=== PATIENT | male | born 1960 | race Caucasian/White ===

== ENCOUNTER 2018-05-20 11:30 | Emergency (ER) | payer MEDICAID, OTHER | END 2018-05-20 13:58 | disposition home or self-care (01) | LOC: FTE 11:30 | DX: S59.902A Unspecified injury of left elbow, initial encounter (principal); E11.9 Type 2 diabetes mellitus without complications; W18.30XA Fall on same level, unspecified, initial encounter; Y92.9 Unspecified place or not applicable | CPT/HCPCS: 73080; 73080-LT; 99283-25 ==